=== PATIENT | male | born 1985 | race Native Hawaiian/Other Pacific Islander ===

== ENCOUNTER 2018-01-10 20:33 | Emergency (ER) | payer OTHER ==
[2018-01-10 20:59] VITALS: BP 126/86; PULSE 86; RESP 18; TEMP 98; O2SAT 99
[2018-01-10] MEDS ORDERED: Tdap Vaccine 0.5 ml Vial (10-64 yrs) IM ONE ×2 (21:14→21:28)
--- NOTE | 2018-01-10 21:16 | ED PDOC ---
HPI: General Adult Time Seen by Provider: 01/10/18 21:04 Chief Complaint (Nursing): Abnormal Skin Integrity Chief Complaint (Provider): lip laceration History Per: Patient Additional Complaint(s): 32 year old male presents with laceration to right upper lip s/p being struck in the face with someone's knee while player This Week Incor about 1 hour prior to arrival. Patient denies LOC and denies any dental injury. He has mild pain to affected area. Patient states he is not sure of last tetanus booster. PMD: [place] Past Medical History Reviewed: Historical Data, Nursing Documentation, Vital Signs Vital Signs: Last Vital Signs Temp 98 F 01/10/18 20:56 Pulse 86 01/10/18 20:56 Resp 18 01/10/18 20:56 BP 126/86 01/10/18 20:56 Pulse Ox 99 01/10/18 21:19 - Medical History PMH: No Chronic Diseases - Surgical History Surgical History: No Surg Hx - Family History Family History: States: No Known Family Hx - Living Arrangements Living Arrangements: With Family - Social History Current smoker - smoking cessation education provided: Yes Alcohol: Social Drugs: Denies - Immunization History Hx Tetanus Toxoid Vaccination: No (not sure of last booster) - Allergies Allergies/Adverse Reactions: Allergies Allergy/AdvReac Type Severity Reaction Status Date / Time No Known Allergies Allergy Verified 01/10/18 20:56 Review of Systems ROS Statement: Except As Marked, All Systems Reviewed And Found Negative ENT: Positive for: Other (lip laceration) Physical Exam - Reviewed Nursing Documentation Reviewed: Yes Vital Signs Reviewed: Yes - Physical Exam Appears: Positive for: Well, Non-toxic, No Acute Distress Skin: Positive for: Normal Color. Negative for: Rash Eye Exam: Positive for: Normal appearance ENT: Positive for: Other (2 cm laceration noted to right upper lip through tj border, minimal active bleeding, N/V intact, dentition intact) Neck: Positive for: Normal Cardiovascular/Chest: Positive for: Regular Rate, Rhythm Respiratory: Positive for: Normal Breath Sounds Extremity: Positive for: Normal ROM Neurologic/Psych: Positive for: Alert, Oriented - ECG O2 Sat by Pulse Oximetry: 99 Pulse Ox Interpretation: Normal Medical Decision Making Medical Decision Makin32 year old with lip laceration Plan: [facility] IM Plastic consult Case was d/w plastics, Dr. Stokes, who states he will come to ED for lac repair. 9:30 pm: Dr. Stokes at bedside for lac repair. Patient was given wound care instructions and was instructed to follow up with Dr. Stokes in is office next week. Disposition - Clinical Impression Clinical Impression: Lip laceration - Patient ED Disposition Is Patient to be Admitted: No Counseled Patient/Family Regarding: Diagnosis, Need For Followup - Disposition Referrals: Yvan Stokes MD [Medical Doctor] - Disposition: Routine/Home Disposition Time: 21:58 Condition: STABLE Additional Instructions: Follow up next week with Dr. Stokes in his office. Instructions: Laceration Repair With Stitches (DC), Diphtheria and Tetanus Toxoids, and Acellular Pertussis Vaccine Forms: [facility] (Danish)
[2018-01-10] MEDS ORDERED: Lidocaine 1% Inj (20ml) ONE (21:25)
--- NOTE | 2018-01-12 21:54 | OP ---
PROCEDURE DATE: 01/10/2018 SURGEON: Yvan Stokes MD PREOPERATIVE DIAGNOSIS: A 2-cm right upper lateral lip laceration across the vermilion border. POSTOPERATIVE DIAGNOSIS: A 2-cm right upper lateral lip laceration across the vermilion border. PROCEDURE PERFORMED: Complex repair of 2.2-cm right upper lip laceration across the vermilion border. ANESTHESIA: Regional: Right infraorbital nerve block. INDICATIONS FOR PROCEDURE: As follows: Please refer to my separately dictated ER consultation for history and physical. DESCRIPTION OF PROCEDURE: As follows: Lidocaine 1% was used in the right infraorbital nerve block for regional anesthesia. After allowing sufficient time for the anesthetic to take effect, the wound was thoroughly irrigated with normal saline, and any retained debris was manually removed. The area was prepped and draped in the usual clean and sterile manner. I used a 4-0 Monocryl to line up and approximate the orbicularis uzma muscle in an interrupted fashion. I used a 4-0 Monocryl to line up and approximate the subcutaneous tissue in an interrupted fashion. I used a 5-0 Monocryl to line up deep dermis of the vermilion border in an interrupted fashion. I then lined up the vermilion border in an interrupted fashion with 6-0 Prolene suture. I closed the epidermis in the philtrum with 6-0 Prolene suture in an interrupted fashion, and I closed the mucosa with 5-0 chromic suture in an interrupted fashion for the 2-cm laceration. After doing this, the wound edges and the vermilion border were nicely aligned. The patient tolerated the procedure well and eventually discharged home from the emergency room in stable condition. Postop wound care, limitations of physical activities, the fact there will be a scar, the prognosis of which is unknown were discussed with the patient, and all questions were answered. Yvan Stokes MD
--- NOTE | 2018-01-13 00:54 | CON ---
DATE: 01/10/2018 EMERGENCY ROOM CONSULTATION SURGEON: Yvan Stokes MD HISTORY OF PRESENT ILLNESS: This is a 32-year-old healthy male who was kneed while playing soccer and sustained a complex laceration of his right upper lip that crossed the vermilion border and involved the orbicularis uzma muscle. I was consulted as the plastic surgeon cardiopulmonary physical therapist. I came in emergently to evaluate and treat the patient. PHYSICAL EXAMINATION: The patient's right upper lateral lip, there was a 2-cm laceration that crossed the vermilion border and involved the orbicularis oculi muscle in its entirety. It was not through the mucosa. There were no other injuries. His facial bones appeared to be nontender. I explained to the patient and his that there would be scarring, and my job as a plastic surgeon was to minimize it. They understood this. Risks and benefits were fully discussed and all questions were answered. I will dictate a separate operative report. Yvan Stokes MD
== END 2018-01-10 22:27 | disposition home or self-care (01) ==
LOC: H.ER 20:33
DX: S01.511A Laceration without foreign body of lip, initial encounter (principal); W22.8XXA Striking against or struck by other objects, initial encounter; Y93.66 Activity, soccer